=== PATIENT | male | born 1995 | race African-American/Black ===

== ENCOUNTER 2017-12-03 01:35 | Emergency (ER) | payer MEDICAID, OTHER ==
[~2017-12-03] VITALS: Ht 182.9 cm; Wt 74.8 kg
[2017-12-03 01:47] VITALS: BP 134/69
== END 2017-12-03 01:55 | disposition left against medical advice (07) ==
LOC: ER 01:37
DX: R05 Cough (principal); R53.1 Weakness; Z53.21 Procedure and treatment not carried out due to patient leaving prior to being seen by health care provider